=== PATIENT | female | born 1960 | race Two or more races ===

== ENCOUNTER 2022-02-23 14:05 | Emergency (ER) | payer SELFPAY ==
[2022-02-23 14:34] LABS: #Eosinphils 0.2 thou/uL (0.0-0.7); #Lymphocytes 2.1 thou/uL (1.20-3.40); #Monocytes 0.7 thou/uL (0.11-0.59); #Neutrophils 6.5 thou/uL (1.40-6.50); %Basophils 0.5 % (0.0-1.0); %Eosinophils 1.8 % (0.0-10.0); %Lymphocytes 22.4 % (21.0-51.0); %Monocytes 7.8 % (0.0-10.0); %Neutrophils 67.6 % (42.0-75.0); Hemoglobin 16.1 g/dL (12.0-16.0); Mean Corpuscular HGB CONC 34.2 g/dL (32.0-36.0); Mean Corpuscular Hemoglobin 34.9 pg (27.0-31.0); Mean Platelet Volume 8.8 fL (7.4-10.4); Platelet Count 233 thou/uL (130-400); RBC Distribution Width 11.8 % (11.5-14.5); White Blood Cell (WBC) Count 9.6 thou/uL (4.8-10.8)
[2022-02-23 15:02] LABS: ALT (SGPT) 19 U/L (8-55); AST (SGOT) 23 U/L (5-34); Albumin 3.9 g/dL (3.5-5.0); Alkaline Phosphatase 124 U/L (40-110); Anion Gap 16 mmol/L (10-20); BUN (Urea Nitrogen) 17 mg/dL (9.8-20.1); Bilirubin, Total 0.3 mg/dL (0.2-1.2); Calc. Creatinine Clearance 0 mL/min (70-130); Calcium 9.5 mg/dL (7.8-10.44); Carbon Dioxide 23 mmol/L (22-29); Chloride 105 mmol/L (98-107); Estimated GFR 87; Globulin 3.2 g/dL (2.4-3.5); Glucose 104 mg/dL (70-105); Lipase 24 U/L (8-78); Potassium 3.7 mmol/L (3.5-5.1); Protein, Total 7.1 g/dL (6.0-8.3); Sodium 140 mmol/L (136-145)
[2022-02-23] MEDS ORDERED: Iopamidol-370 76% 500 ML 1 ML ONE (15:34)
[2022-02-23] MEDS ORDERED: Morphine 4 MG/ML VIAL ONE (15:38)
[2022-02-23] MEDS ORDERED: Famotidine/PF 20 mg/2ml Vial ONE (15:38)
[2022-02-23] MEDS ORDERED: Ondansetron PF 4 MG/2 ML Vial ONE ×2 (15:38→17:12)
== END 2022-02-23 17:51 | disposition home or self-care (01) ==
LOC: ERS 14:05
DX: R10.84 Generalized abdominal pain (principal); E78.5 Hyperlipidemia, unspecified; K21.9 Gastro-esophageal reflux disease without esophagitis; Z79.899 Other long term (current) drug therapy
CPT/HCPCS: 36415; 74177; 80053; 83690; 84484; 85025; 93005; 94760; 96361; 96374; 96375; 96376; J2270; J2405; Q9967; S0028

== ENCOUNTER 2022-02-25 20:23 | Emergency (ER) | payer SELFPAY ==
[2022-02-25] MEDS ORDERED: Mag-Al 1200 mg/1200 mg/30 ML UDCUP ONE (22:50)
[2022-02-25] MEDS ORDERED: Lidocaine Viscous Sol 2% 15 ml UD Cup ONE (22:50)
== END 2022-02-25 23:40 | disposition home or self-care (01) ==
LOC: ERS 20:23
DX: K25.9 Gastric ulcer, unspecified as acute or chronic, without hemorrhage or perforation (principal); F17.210 Nicotine dependence, cigarettes, uncomplicated; Z79.899 Other long term (current) drug therapy
CPT/HCPCS: 93005

== ENCOUNTER 2022-11-13 08:59 | Outpatient (CLI) | payer OTHER | END 2022-11-13 09:00 | disposition home or self-care (01) | LOC: BICULT 08:59 | PROVIDERS: ATTEND Nurse Practitioner Family | DX: R14.0 Abdominal distension (gaseous) (principal); K76.0 Fatty (change of) liver, not elsewhere classified | CPT/HCPCS: 76700; 76856 ==

== ENCOUNTER 2023-02-08 09:44 | Outpatient (CLI) | payer OTHER | END 2023-02-08 09:45 | disposition home or self-care (01) | LOC: BICMRI 09:44 | PROVIDERS: ATTEND Family Medicine | DX: M47.26 Other spondylosis with radiculopathy, lumbar region (principal); M47.815 Spondylosis without myelopathy or radiculopathy, thoracolumbar region; M47.817 Spondylosis without myelopathy or radiculopathy, lumbosacral region; G95.9 Disease of spinal cord, unspecified | CPT/HCPCS: 72100; 72148 ==

== ENCOUNTER 2024-04-22 15:30 | Outpatient (CLI) | payer OTHER | END 2024-04-22 15:31 | disposition home or self-care (01) | LOC: BICRAD 15:30 | PROVIDERS: ATTEND Family Medicine | DX: M51.34 Other intervertebral disc degeneration, thoracic region (principal); M51.36 Other intervertebral disc degeneration, lumbar region; M47.814 Spondylosis without myelopathy or radiculopathy, thoracic region; M47.816 Spondylosis without myelopathy or radiculopathy, lumbar region | CPT/HCPCS: 72072; 72100 ==